=== PATIENT | female | born 1990 | race Caucasian/White ===

== ENCOUNTER 2019-02-16 18:14 | Inpatient (IN) ==
[2019-02-16] MEDS ORDERED: KEFZOL 1 GM/D5W 1 GM/50 ML IVPB IV PRN (18:18)
[2019-02-16] MEDS ORDERED: PEPCID IV PRN (18:18)
[2019-02-16] MEDS ORDERED: REGLAN PO ONE (18:18)
[2019-02-16] MEDS ORDERED: PEPCID PO PRN (18:18)
[2019-02-16] MEDS ORDERED: STADOL IV PRN ×2 (18:18)
[2019-02-16] MEDS ORDERED: PEPCID PO ONE (18:18)
[2019-02-16] MEDS ORDERED: BRETHINE SUBQ PRN (18:18)
[2019-02-16] MEDS ORDERED: AMBIEN PO PRN (18:18)
[2019-02-16] MEDS ORDERED: TYLENOL PO PRN (18:18)
[2019-02-16] MEDS ORDERED: LR 1,000 ML IV ONE (18:30)
--- NOTE | 2019-02-16 19:39 | HISTORY AND PHYSICAL ---
HISTORY OF PRESENT ILLNESS: The patient is a 28-year-old G4, P2-0-1-2 with an IUP at 39-5/7 weeks with an EDC of 02/18/2019, who presents for elective induction of labor. The patient has a history of gestational diabetes during this . The patient reports she has had gestational diabetes with a previous as well. The patient reports no contractions. No nausea/vomiting, or diarrhea. No fever, no chills. LABORATORIES: Blood type is B positive. Antibody negative. RPR is nonreactive. Rubella is nonimmune. HBsAg is negative. HIV is negative. GC and chlamydia negative. Diabetes screen was abnormal. Patient is gestational diabetic. Group B Streptococcus is negative. OBSTETRICAL HISTORY: Significant for 2 term deliveries at 40 weeks, vaginal deliveries both, and one 12-week miscarriage. GYNECOLOGICAL HISTORY: Noncontributory. FAMILY HISTORY: Noncontributory as well. MEDICAL HISTORY: Patient has a history of gestational diabetes. SOCIAL HISTORY: Patient has history of tobacco smoking. Patient has quit smoking. No street drugs. No marijuana. MEDICATIONS: Patient is taking metformin 500 mg p.o. b.i.d. She is taking a vitamin. She also takes Flexeril p.r.n. PHYSICAL EXAMINATION: Vital Signs: BP 147/79 O2 Sat 100% on room air; Resp 20; temp 97.6 GENERAL: Patient is awake, alert, oriented x3, in no apparent distress. The patient is morbidly obese. HEENT: Patient is normocephalic, atraumatic. CARDIOVASCULAR: S1, S2 are normal. LUNGS: Clear. ABDOMEN: Gravid with normal bowel sounds. EXTREMITIES: 1+ edema. SKIN: Normal. FHR 140s ASSESSMENT: 1. Intrauterine at 39 weeks and 5 days with estimated date of confinement (EDC) 02/18/2019. 2. Gestational diabetes. PLAN: Admit to Labor and Delivery for induction with Cytotec. Patient was a difficult stick and IV access was finally obtained in shoulder. The patient is GBS negative. No need for prophylaxis. Expect vaginal delivery. cc: MD Jameson Segura, DO MORE
[2019-02-16 20:03] LABS: URINE SOURCE VOIDED
[2019-02-16 20:16] LABS: BILIRUBIN URINE NEGATIVE (NEGATIVE); BLOOD URINE 1+ (NEGATIVE); CLARITY CLEAR (CLEAR); COLOR YELLOW; GLUCOSE URINE NEGATIVE (NEGATIVE); KETONE URINE NEGATIVE (NEGATIVE); LEUKOCYTES URINE 2+ (NEGATIVE); NITRITE URINE NEGATIVE (NEGATIVE); PH URINE 6.5; PROTEIN URINE TRACE mg/dL (NEGATIVE); UROBILINOGEN URINE NORMAL
[2019-02-16 20:19] LABS: UR AMPHETAMINES QUAL NONE DETECTED (NONE DETECT); UR BARBITUATES QUAL NONE DETECTED (NONE DETECT); UR BENZODIAZEPIN QUAL NONE DETECTED (NONE DETECT); UR CANNABINOIDS QUAL NONE DETECTED (NONE DETECT); UR COCAINE QUAL NONE DETECTED (NONE DETECT); UR METHADONE QUAL NONE DETECTED (NONE DETECT); UR METHAMPHETAMINE QUAL NONE DETECTED (NONE DETECT); UR OPIATES QUAL NONE DETECTED (NONE DETECT); UR OXYCODONE QUAL NONE DETECTED (NONE DETECT); UR PCP QUAL NONE DETECTED (NONE DETECT); UR PROPOXYPHENE QUAL NONE DETECTED (NONE DETECT); UR TCA QUAL NONE DETECTED (NONE DETECT)
[2019-02-16 21:06] LABS: BASO# 0.02 X1000 (0.0-0.2); BASO% 0.2 % (0.0-0.8); EOS# 0.08 X1000 (0.0-0.7); EOS% 0.6 % (0.0-10.0); HEMATOCRIT 36.2 % (37.0-47.0); HEMOGLOBIN 11.8 g/dL (12.0-16.0); IMM GRAN# 0.04 X1000 (0.0-0.04); IMM GRAN% 0.3 % (0.0-0.5); LYMPH# 2.85 X1000 (1.2-3.4); LYMPH% 22.6 % (20.5-51.1); MCH 27.7 PG (27-31); MCHC 32.6 g/dL (33-37); MONO# 0.73 X1000 (0.11-0.59); MONO% 5.8 % (1.7-9.3); MPV 10.1 FL (7.4-10.4); NEUT# 8.87 X1000 (1.4-6.5); NEUT% 70.5 % (42.2-75.2); PLT 245 X1000 (130-400); RBC 4.26 XMIL (4.2-5.4); RDW 14.7 % (11.5-14.5); WBC 12.59 X1000 (4.8-10.8)
[2019-02-16] MEDS: CYTOTEC PO SCH (21:06)
[2019-02-17] MEDS: STADOL IV PRN ×3 (00:12→10:07)
[2019-02-17] MEDS: ZOFRAN IV PRN ×2 (00:13→20:17)
[2019-02-17] MEDS: CYTOTEC PO SCH ×2 (00:51→05:02)
[2019-02-17] MEDS: LR 1,000 ML IV SCH ×3 (00:57→13:05)
[2019-02-17] MEDS ORDERED: MINERAL OIL TOP PRN (05:20)
[2019-02-17] MEDS ORDERED: XYLOCAINE-MPF 1% INJ PRN ×2 (05:20→21:33)
[2019-02-17] MEDS ORDERED: PITOCIN 30 UNITS/NS 30 UNIT/500 ML IV.SOLN IV SCH ×2 (08:00→21:45)
[2019-02-17] MEDS ORDERED: FENTANYL-BUPIV-NS 2 MCG-0.1% 200 ML EPIDURAL SCH (12:00)
[2019-02-17] MEDS ORDERED: NAROPIN 0.2% INJ ONE (12:00)
[2019-02-17] MEDS ORDERED: HYDROXYZINE IM PRN (21:33)
[2019-02-17] MEDS ORDERED: BENADRYL IV PRN (21:33)
[2019-02-17] MEDS ORDERED: M-M-R II VACCINE SUBQ ONE (21:33)
[2019-02-17] MEDS ORDERED: BOOSTRIX VACCINE IM ONE (21:33)
[2019-02-17] MEDS ORDERED: MINERAL OIL PO PRN (21:33)
[2019-02-17] MEDS ORDERED: BENADRYL PO PRN (21:33)
[2019-02-17] MEDS ORDERED: AMBIEN PO PRN (21:33)
[2019-02-17] MEDS ORDERED: PITOCIN IM PRN (21:33)
[2019-02-17] MEDS ORDERED: ATARAX PO PRN (21:33)
[2019-02-17] MEDS ORDERED: PERI MEDS (DERMOPLAST/NUPERCAINAL/TUCKS) MISC PRN (21:33)
[2019-02-17] MEDS ORDERED: CYTOTEC PO PRN (21:33)
[2019-02-17] MEDS ORDERED: PRILOSEC PO PRN (21:35)
[2019-02-17] MEDS ORDERED: PITOCIN 20 UNITS/NS 20 UNITS/1,000 ML IV.SOLN IV SCH (21:45)
--- NOTE | 2019-02-17 22:17 | OPERATIVE NOTE ---
PROCEDURE DATE: 02/17/2019 DELIVERY SUMMARY: Patient progressed to complete and pushing. Had spontaneous vaginal delivery of a male , 9 pounds 3 ounces with Apgars of 9 and 10 at 2103 on 02/17/2019 over a periclitoral laceration. Placenta was delivered intact with 3 vessel cord. The periclitoral laceration was repaired with 3-0 chromic in a running fashion. Estimated blood loss was 200 mL. Anesthesia was an epidural. All counts were correct x2. cc: MD Jameson Deshpande III, DO
[2019-02-18] MEDS: MOTRIN PO PRN ×3 (00:18→16:46)
[2019-02-18] MEDS: NORCO-10 PO PRN ×3 (00:18→20:52)
[2019-02-18] MEDS: PERICOLACE PO SCH ×2 (00:21→20:50)
[2019-02-18 06:13] LABS: BASO# 0.02 X1000 (0.0-0.2); BASO% 0.1 % (0.0-0.8); EOS# 0.07 X1000 (0.0-0.7); EOS% 0.5 % (0.0-10.0); HEMATOCRIT 34.2 % (37.0-47.0); HEMOGLOBIN 11.3 g/dL (12.0-16.0); IMM GRAN# 0.04 X1000 (0.0-0.04); IMM GRAN% 0.3 % (0.0-0.5); LYMPH# 2.92 X1000 (1.2-3.4); LYMPH% 19.2 % (20.5-51.1); MCV 84.9 FL (81-99); MONO# 0.87 X1000 (0.11-0.59); MONO% 5.7 % (1.7-9.3); MPV 9.7 FL (7.4-10.4); NEUT# 11.32 X1000 (1.4-6.5); NEUT% 74.2 % (42.2-75.2); PLT 213 X1000 (130-400); RBC 4.03 XMIL (4.2-5.4); RDW 14.6 % (11.5-14.5); WBC 15.24 X1000 (4.8-10.8)
--- NOTE | 2019-02-18 07:39 | OB/GYN PROGRESS NOTE ---
Progress Note OB - . OB Progress Note: Vital Signs - 24 hr 02/17/19 07:40 02/17/19 12:15 02/17/19 15:00 Temperature 96.5 F L 96.7 F L 96.1 F L Pulse Rate 61 53 L 52 L Respiratory Rate 20 20 16 Blood Pressure 130/66 116/56 97/54 Blood Pressure [Right Arm] O2 Sat by Pulse Oximetry 100 100 98 02/17/19 21:15 02/17/19 21:25 02/17/19 21:35 Temperature 96.8 F L Pulse Rate 78 77 77 Respiratory Rate 18 18 18 Blood Pressure 119/60 Blood Pressure [Right Arm] 119/60 108/55 108/55 O2 Sat by Pulse Oximetry 100 99 100 02/17/19 21:45 02/17/19 21:55 02/17/19 22:05 Temperature Pulse Rate 60 60 75 Respiratory Rate 18 18 18 Blood Pressure Blood Pressure [Right Arm] 107/54 107/54 127/67 O2 Sat by Pulse Oximetry 96 99 99 02/17/19 22:15 02/18/19 00:15 02/18/19 04:15 Temperature 97.0 F L 96.6 F L Pulse Rate 65 69 58 L Respiratory Rate 18 18 18 Blood Pressure 122/64 122/61 Blood Pressure [Right Arm] 122/59 O2 Sat by Pulse Oximetry 100 Laboratory Results - last 24 hr 02/18/19 06:05 WBC 15.24 H RBC 4.03 L Hgb 11.3 L Hct 34.2 L MCV 84.9 MCH 28.0 MCHC 33.0 RDW Std Deviation 14.6 H Plt Count 213 MPV 9.7 Immature Gran % (Auto) 0.3 Neut % (Auto) 74.2 Lymph % (Auto) 19.2 L Norman % (Auto) 5.7 Eos % (Auto) 0.5 Baso % (Auto) 0.1 Immature Gran # (Auto) 0.04 Neut # (Auto) 11.32 H Lymph # (Auto) 2.92 Norman # (Auto) 0.87 H Eos # (Auto) 0.07 Baso # (Auto) 0.02 progress Note Patient reports feeling well this morning. Lochia less than menses. desires a shower. AFVSS General: AAOx3 in no apparent distress HEENT: NCAT CV: S1 S2 normal Lungs: clear Abdomen. Fundus firm. positive bowel sounds. Ext: 1+ edema A/P day #0 s/p Gestational diabetes - check fasting glucose this am to determine whether to continue metformin - ambulate today - continue routine care
[2019-02-18] MEDS: NORCO-5 PO PRN (08:57)
[2019-02-18] MEDS: PRECARE PO SCH (09:40)
[2019-02-18] MEDS: GLUCOPHAGE PO SCH ×2 (09:40→18:18)
[2019-02-19] MEDS: MOTRIN PO PRN ×2 (07:06→16:41)
[2019-02-19] MEDS: PRECARE PO SCH (09:11)
--- NOTE | 2019-02-19 09:26 | OB/GYN PROGRESS NOTE ---
Progress Note OB - . Patient Problems: Current Active Problems Problem Status Onset Gestational diabetes Acute Vaginal delivery Acute OB Progress Note: Vital Signs - 24 hr 02/18/19 11:29 02/18/19 15:56 02/18/19 20:50 Temperature 96.3 F L 97.9 F 96.7 F L Pulse Rate 65 84 81 Respiratory Rate 18 18 18 Blood Pressure 115/60 123/58 116/73 O2 Sat by Pulse Oximetry 100 100 100 02/19/19 02:15 02/19/19 07:53 Temperature 96.6 F L 96.1 F L Pulse Rate 63 79 Respiratory Rate 18 16 Blood Pressure 117/65 135/64 O2 Sat by Pulse Oximetry 100 100 Day #1 Progress Note 28yo who is PPD #1 s/p of a 9lb3oz male . Antepartum course was complicated by GDM She is doing well. She had more cramping this AM and noted one fully saturated pad overnight. Pain is well controlled with Ibuprofen and she had one tablet of [place] on yesterday. She is ambulating, tolerating PO intake, and voiding without difficulty. She is and denies any complaints. is not a suitable candidate for circumcision at this time and will have it performed outpatient. Mica Sizer plans for discharge on tomorrow. Vital signs as above GEN: NAD, alert, cooperative HEENT: Normocephalic and atraumatic Heart: RRR, no MRG or clicks Lungs: CTAB, no adventitious breath sounds Abdomen: Normoactive bowel sounds, soft Extremities: Trace edema, no cyanosis, negative Lit's sign Labs: 02/16/19 02/16/19 02/18/19 21:00 21:00 06:05 WBC 12.59 H 15.24 H Hgb 11.8 L 11.3 L Hct 36.2 L 34.2 L Glucose 127 H POC Glucose 02/18/19 07:36 WBC Hgb Hct Glucose POC Glucose 78 No new imaging Assessment: 28yo who is PPD #1 s/p ; GDM Plan: 1. Routine pospartum care - Continue pain control with Ibuprofen and [place] - - Encourage ambulation 2. GDM - Blood glucose level 78 on yesterday - Hold Metformin today and repeat FBG on tomorrow AM Disposition: Home tomorrow with discharge. SEE NOTE BY DR VAZQUEZ
--- NOTE | 2019-02-19 16:45 | OB/GYN PROGRESS NOTE ---
Progress Note OB - . Patient Problems: Current Active Problems Problem Status Onset Gestational diabetes Acute Vaginal delivery Acute OB Progress Note: Vital Signs - 24 hr 02/18/19 20:50 02/19/19 02:15 02/19/19 07:53 Temperature 96.7 F L 96.6 F L 96.1 F L Pulse Rate 81 63 79 Respiratory Rate 18 18 16 Blood Pressure 116/73 117/65 135/64 O2 Sat by Pulse Oximetry 100 100 100 02/19/19 15:35 Temperature 98.0 F Pulse Rate 64 Respiratory Rate 16 Blood Pressure 140/74 O2 Sat by Pulse Oximetry 99 OB Progress Note: Vital Signs - 24 hr 02/18/19 11:29 02/18/19 15:56 02/18/19 20:50 Temperature 96.3 F L 97.9 F 96.7 F L Pulse Rate 65 84 81 Respiratory Rate 18 18 18 Blood Pressure 115/60 123/58 116/73 O2 Sat by Pulse Oximetry 100 100 100 02/19/19 02:15 02/19/19 07:53 Temperature 96.6 F L 96.1 F L Pulse Rate 63 79 Respiratory Rate 18 16 Blood Pressure 117/65 135/64 O2 Sat by Pulse Oximetry 100 100 Day #1 Progress Note 28yo P2-0-1-2 who delivered at 39-5/7 and is PPD #1 s/p of a 9lb3oz male . Antepartum course was complicated by GDM She is doing well. She had more cramping this AM and noted one fully saturated pad overnight. Pain is well controlled with Ibuprofen and she had one tablet of [place] on yesterday. She is ambulating, tolerating PO intake, and voiding without difficulty. She is and denies any complaints. is not a suitable candidate for circumcision at this time and will have it performed outpatient. Intelligence Intern plans for discharge on tomorrow. Vital signs as above GEN: NAD, alert, cooperative HEENT: Normocephalic and atraumatic Heart: RRR, no MRG or clicks Lungs: CTAB, no adventitious breath sounds Abdomen: Normoactive bowel sounds, soft Extremities: Trace edema, no cyanosis, negative Lit's sign Labs: 02/16/19 02/16/19 02/18/19 21:00 21:00 06:05 WBC 12.59 H 15.24 H Hgb 11.8 L 11.3 L Hct 36.2 L 34.2 L Glucose 127 H POC Glucose 02/18/19 07:36 WBC Hgb Hct Glucose POC Glucose 78 No new imaging Assessment: 28yo P2-0-1-2 who is PPD #1 s/p ; GDM Plan: 1. Routine pospartum care - Continue pain control with Ibuprofen and Edson - - Encourage ambulation 2. GDM - Blood glucose level 78 on yesterday - Hold Metformin today and repeat FBG on tomorrow AM Disposition: Home tomorrow with discharge. Nicol Ortega M.D.
[2019-02-19] MEDS: PERICOLACE PO SCH (21:12)
[2019-02-19] MEDS: NORCO-10 PO PRN (22:17)
[2019-02-20] MEDS: NORCO-5 PO PRN (04:00)
--- NOTE | 2019-02-20 07:00 | OB/GYN PROGRESS NOTE ---
Progress Note OB - . Patient Problems: Current Active Problems Problem Status Onset Gestational diabetes Acute Vaginal delivery Acute OB Progress Note: Vital Signs - 24 hr 02/19/19 07:53 02/19/19 15:35 02/19/19 20:38 Temperature 96.1 F L 98.0 F 98.0 F Pulse Rate 79 64 79 Respiratory Rate 16 16 20 Blood Pressure 135/64 140/74 152/72 O2 Sat by Pulse Oximetry 100 99 100 02/20/19 03:55 Temperature 96.2 F L Pulse Rate 68 Respiratory Rate 18 Blood Pressure 144/71 O2 Sat by Pulse Oximetry 100 PPD 2 s/p with PNC complicated by A1DM No complaints, denies PIH/orthostatic symptoms. No hyper/hypoglycemic symptoms. A&O NAD CTAB RRR S/ND/NT Fundus firm Normal lochia No C/C/E PPD 2 s/p doing well - D/C home - follow up Dr. Thompson 6 wks or prn.
[2019-02-20] MEDS: MOTRIN PO PRN (11:30)
[2019-02-20] MEDS: PRECARE PO SCH (11:32)
[2019-02-20 11:53] VITALS: BP 139/73
== END 2019-02-20 14:00 | disposition home or self-care (01) | DRG 768 ==
LOC: P.LD 18:14
PROVIDERS: ADMIT Obstetrics & Gynecology; ATTEND Obstetrics & Gynecology
CPT/HCPCS: 80104; 80301; 80305; 81003; 82947; 82948; 85025; 86592; 90707; 90715; A9270; G0431; G0434; G0477; J0595; J2405; J2590; J2795; J7120; XXXXX